=== PATIENT | female | born 1950 | race Caucasian/White ===

== ENCOUNTER 2017-02-17 13:57 | Inpatient (IN) | payer OTHER ==
[2017-02-17] MEDS ORDERED: Dexamethasone 20 MG/5 ML VIAL ONE (14:00)
[2017-02-17] MEDS ORDERED: Glycopyrrolate 0.2 MG/ML 5 ML SYRINGE ONE (14:00)
[2017-02-17] MEDS ORDERED: Propofol 200 MG/20 ML VIAL ONE (14:00)
[2017-02-17] MEDS ORDERED: Ketorolac Tromethamine 30 MG/ML VIAL ONE (14:00)
[2017-02-17] MEDS ORDERED: Ondansetron HCl/PF 4 MG/2 ML Vial ONE (14:00)
[2017-02-17] MEDS ORDERED: CEFAZOLIN/Water 2 GM/20 ML SYRINGE ONE (14:28)
[2017-02-17] MEDS ORDERED: Midazolam HCl 2 mg/2 ml Vial ONE ×2 (15:50→16:04)
[2017-02-17] MEDS ORDERED: Bupivacaine/Epinephrine 0.25% 30 ML VIAL ONE (15:57)
[2017-02-17] MEDS ORDERED: Fentanyl 100 MCG/2 ML VIAL ONE (16:04)
[2017-02-17] MEDS ORDERED: diphenhydrAMINE 25 MG CAP PO PRN (17:43)
[2017-02-17] MEDS ORDERED: Zolpidem Tartrate 5 MG TAB PO PRN (17:43)
[2017-02-17] MEDS ORDERED: Naloxone HCl 0.4 mg/ml Vial IV PRN (17:43)
[2017-02-17] MEDS ORDERED: HYDROmorphone HCl/PF 0.1 MG/ML 100 ML ONE (19:16)
[2017-02-17] MEDS ORDERED: Promethazine HCl 25 MG/ML VIAL IM PRN (19:21)
[2017-02-17] MEDS ORDERED: Ondansetron HCl/PF 4 MG/2 ML Vial IVP PRN (19:21)
[2017-02-17] MEDS ORDERED: Dextrose 5% in Water 1,000 ML IV PRN (19:21)
[2017-02-17] MEDS ORDERED: Dextrose 50% Abboject 50 ML SYRINGE SLOW IVP PRN (19:21)
[2017-02-17] MEDS ORDERED: hydrALAZINE 20 MG/ML VIAL SLOW IVP PRN (19:21)
[2017-02-17] MEDS ORDERED: Ondansetron ODT 4 MG TAB PO PRN (19:21)
[2017-02-17] MEDS: D5 1/2 NS w/20 mEq KCL 1,000 ML IV SCH (21:04)
[2017-02-17] MEDS: Promethazine HCl 25 MG/ML VIAL IM PRN (23:01)
[2017-02-17 23:05] VITALS: BMI 29.4
[2017-02-18] MEDS ORDERED: diphenhydrAMINE 50 MG/ML VIAL IVP SCH (04:15)
[2017-02-18] MEDS: HYDROmorphone 10 mg/100 ml CADD IV PRN ×2 (07:42→15:07)
[2017-02-18] MEDS: D5 1/2 NS w/20 mEq KCL 1,000 ML IV SCH (11:06)
[2017-02-18] MEDS ORDERED: diphenhydrAMINE 50 MG/ML VIAL IVP PRN (11:54)
[2017-02-18] MEDS: Promethazine HCl 25 MG/ML VIAL IM PRN (15:39)
--- NOTE | 2017-02-18 17:28 | OP ---
DATE OF PROCEDURE: 02/17/2017 PREOPERATIVE DIAGNOSIS: Chronic open wound and foreign body reaction left posterior buttock and flan k. POSTOPERATIVE DIAGNOSIS: Chronic open wound and foreign body reaction left posterior buttock and fla nk. PROCEDURE: Incision and debridement of chronic infected foreign body to back. SURGEON: Robert Alfredo M.D. ANESTHESIA: General. ESTIMATED BLOOD LOSS: Minimal. COMPLICATIONS: None. FINDINGS: There was a large calcified piece of chronic foreign body reaction similar to previous are as removed from previous surgeries. TECHNIQUE: The patient was taken to the operating room and laid supine on the operating room supine on the table. After general anesthetic was obtained, she was placed in the right lateral decubitus p osition. The chronic open wound to the left lower back and buttock was prepped and draped in a steri le fashion. There was palpable chronic calcified foreign body in the bed of the previous made wound. The tissues around this were incised using cautery. A large piece of calcified foreign body reacti on was found and dissected free from the deeper tissues and removed in its entirety. There was no ot her obvious calcified foreign body in the wound at this point, the wound was irrigated and meticulous hemostasis was obtained. Intraoperative wound VAC was placed. The patient was en route to recovery in stable condition. All instrument counts, needle counts, and lap counts were correct.
[2017-02-18] MEDS: diphenhydrAMINE 50 MG/ML VIAL IVP PRN ×2 (17:41→21:44)
[2017-02-19] MEDS: D5 1/2 NS w/20 mEq KCL 1,000 ML IV SCH ×2 (00:57→14:34)
[2017-02-19] MEDS: HYDROmorphone 10 mg/100 ml CADD IV PRN ×4 (00:58→23:29)
[2017-02-19] MEDS: Ondansetron HCl/PF 4 MG/2 ML Vial IVP PRN ×2 (01:56→14:26)
[2017-02-19] MEDS: diphenhydrAMINE 50 MG/ML VIAL IVP PRN ×6 (01:59→22:14)
[2017-02-19] MEDS ORDERED: Estradiol 0.01% Vaginal Cream 42.5 gm Tube VAG PRN (09:00)
[2017-02-19] MEDS ORDERED: Lidocaine 4% Topical Sol 50 ML BOT TOP PRN (10:16)
[2017-02-19] MEDS: Promethazine HCl 25 MG/ML VIAL IM PRN (10:22)
[2017-02-19] MEDS ORDERED: Meperidine HCl/PF 25 MG/ML VIAL SLOW IVP SCH ×2 (15:00)
[2017-02-20] MEDS: diphenhydrAMINE 50 MG/ML VIAL IVP PRN ×5 (03:46→21:08)
[2017-02-20] MEDS: D5 1/2 NS w/20 mEq KCL 1,000 ML IV SCH ×2 (03:49→18:04)
[2017-02-20] MEDS: HYDROmorphone 10 mg/100 ml CADD IV PRN ×3 (08:13→21:13)
[2017-02-20] MEDS: Ondansetron HCl/PF 4 MG/2 ML Vial IVP PRN (13:16)
--- NOTE | 2017-02-20 14:25 | PQF ---
CLINICAL DOCUMENTATION IMPROVEMENT CLARIFICATION FORM: ICD-10 Updated PLEASE DO AN ADDENDUM TO THE PROGRESS NOTE WITH ANY DOCUMENTATION UPDATES OR ADDITIONS AND CARRY THROUGH TO DC SUMMARY. THANK YOU. DATE: 02/20/17 ATTN: DR. PIERRE Please exercise your independent, professional judgment in responding to the clarification form. Clinical indicators are provided on the bottom of this form for your review Please check appropriate box(s): [ ] Excisional Debridement: [ ] Excised [ ] Cut away [ ] Other: Depth / layer: (deepest layer of debridement): [ ] Skin[ ] SubQ Tissue [ ] Fascia [ ] Muscle [ ] Tendon [ ] Bone Appearance of wound: (e.g., down to fresh bleeding tissue, etc.)___ Margins: (please specify): / x x Instruments used: [ ] Scissors [ ] Scalpel [ ] Curette [ ] Soft tissue clipper [ ] Other: [ ] Non-excisional Debridement: (Removal by ?ushing, brushing, chemical, or washing) [ ] Incision and Drainage only (No Debridement): Depth:[ ] Skin [ ] Sub Q[ ] Into soft tissue [ ] Escharectomy [ ] Other procedure diagnosis [ ] Unable to determine For continuity of documentation, please document condition throughout progress notes and discharge summary. Thank You. CLINICAL INDICATORS - SIGNS / SYMPTOMS / LABS OP NOTE 02/18: "INCISION AND DEBRIDEMENT OF CHRONIC INFECTED FOREIGN BODY TO BACK" "A LARGE PIECE OF CALCIFIED FOREIGN BODY REACTION WAS FOUND AND DISSECTED FREE FROM THE DEEPER TISSUES AND REMOVED IN ITS ENTIRETY." RISKS: ABSCESS-LEFT POSTERIOR BUTTOCK AND FLANK TREATMENT: SURGICAL INTERVENTION WOUND CARE WOUND VAC (This form is maintained as a part of the permanent medical record) 2014 [employer]. All Rights Reserved WILLIAM [email or web address] Office: [phone] [facility]ITAL[facility]
[2017-02-20] MEDS: Promethazine HCl 25 MG/ML VIAL IM PRN ×2 (17:00→21:07)
[2017-02-21] MEDS: diphenhydrAMINE 50 MG/ML VIAL IVP PRN ×5 (01:56→20:21)
[2017-02-21] MEDS: HYDROmorphone 10 mg/100 ml CADD IV PRN ×3 (03:50→18:47)
[2017-02-21] MEDS: Ondansetron HCl/PF 4 MG/2 ML Vial IVP PRN ×2 (05:49→20:20)
[2017-02-21] MEDS: D5 1/2 NS w/20 mEq KCL 1,000 ML IV SCH ×2 (07:59→20:20)
[2017-02-21] MEDS: Promethazine HCl 25 MG/ML VIAL IM PRN ×2 (10:59→15:35)
[2017-02-21] MEDS: Meperidine HCl/PF 25 MG/ML VIAL SLOW IVP PRN ×2 (11:20→11:46)
--- NOTE | 2017-02-21 15:53 | PRG ---
DATE OF SERVICE: 02/21/2017 SUBJECTIVE: Ms. Otto's pain is better controlled. She had wound VAC changed at the bedside this m pepito. OBJECTIVE: VITAL SIGNS: She is afebrile. Vital signs are stable. ABDOMEN: Soft, nontender. Wound has the VAC in place. ASSESSMENT: Status post debridement and drainage of back abscess and removal of chronic foreign body . PLAN: Continue wound VAC. She is not on antibiotics. There was no purulence in the wound and all c ultures in the past have all grown out negative for bacteria. Continue pain control, likely will nee d hospitalization over the weekend for pain control and discharge home on Friday.
[2017-02-22] MEDS: Promethazine HCl 25 MG/ML VIAL IM PRN ×2 (00:39→16:50)
[2017-02-22] MEDS: diphenhydrAMINE 50 MG/ML VIAL IVP PRN ×6 (00:40→20:47)
[2017-02-22] MEDS: HYDROmorphone 10 mg/100 ml CADD IV PRN ×3 (03:52→19:04)
--- NOTE | 2017-02-22 10:13 | PRG ---
DATE OF SERVICE: 02/22/2017 Ms. Otto is complaining of pain. Her dressing change yesterday was painful. Her pain is only slig htly improved today. She did have a bowel movement. PHYSICAL EXAMINATION: VITAL SIGNS: She is afebrile, vital signs are stable. CHEST: Clear. HEART: Regular rate and rhythm. ABDOMEN: Soft. Wound has a VAC. 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 PLAN: Dressing change on Friday, likely discharge after that.
[2017-02-22] MEDS: Ondansetron HCl/PF 4 MG/2 ML Vial IVP PRN ×2 (12:48→20:47)
[2017-02-22] MEDS: D5 1/2 NS w/20 mEq KCL 1,000 ML IV SCH (12:52)
[2017-02-23] MEDS: diphenhydrAMINE 50 MG/ML VIAL IVP PRN ×6 (00:41→20:40)
[2017-02-23] MEDS: HYDROmorphone 10 mg/100 ml CADD IV PRN ×4 (01:13→22:29)
[2017-02-23] MEDS: D5 1/2 NS w/20 mEq KCL 1,000 ML IV SCH ×2 (03:20→20:39)
[2017-02-23] MEDS: Ondansetron HCl/PF 4 MG/2 ML Vial IVP PRN ×2 (04:52→12:44)
[2017-02-23] MEDS: Promethazine HCl 25 MG/ML VIAL IM PRN ×2 (08:43→20:40)
--- NOTE | 2017-02-23 13:16 | PRG ---
DATE OF SERVICE: 02/23/2017 SUBJECTIVE: Ms. Otto's pain is controlled on TONG SETTER. She is afebrile. Vital signs are stable. Woun d is covered in the VAC. ASSESSMENT: Chronic open wound VAC with wound VAC and TONG SETTER for pain control. PLAN: Continue pain control. Discharge home next week.
[2017-02-24] MEDS: diphenhydrAMINE 50 MG/ML VIAL IVP PRN ×6 (01:31→23:10)
[2017-02-24] MEDS: Ondansetron HCl/PF 4 MG/2 ML Vial IVP PRN ×3 (01:31→23:12)
[2017-02-24] MEDS: HYDROmorphone 10 mg/100 ml CADD IV PRN ×3 (05:59→20:56)
--- NOTE | 2017-02-24 09:20 | PRG ---
DATE OF SERVICE: 02/24/2017 SUBJECTIVE: Ms. Otto is complaining of more severe pain down the back side of her leg starting at her wound extending down towards the calf. PHYSICAL EXAMINATION: She is afebrile. Her vital signs are stable. Examination of the wound reveal s wound VAC to be in place. Examination of the lower extremities reveals no obvious significant rey a, but she is point tender starting below the wound. ASSESSMENT: Likely nerve irritation from incision and drainage and chronic foreign body removal to p osterior leg. PLAN: We will check ultrasound of bilateral lower extremity to rule out DVT. I had been holding Dee enox secondary to bleeding risk from this large wound that she has, but it is probably safe to start now, probably going to be ready for discharge in the next few days.
[2017-02-24] MEDS: D5 1/2 NS w/20 mEq KCL 1,000 ML IV SCH (10:36)
[2017-02-24] MEDS: Meperidine HCl/PF 25 MG/ML VIAL SLOW IVP PRN ×2 (11:03→11:31)
--- NOTE | 2017-02-24 11:27 | ULT ---
[facility] LOWER EXTREMITY VENOUS DOPPLER ULTRASOUND: 02/24/2017 HISTORY: Pain. Swelling. Edema. Assess for DVT. COMPARISON: None. TECHNIQUE: Multiplanar garcia-scale sonographic imaging of the venous structures of the bilateral upper extremitie s obtained with color-flow and spectral analysis. FINDINGS: Bilateral common femoral veins, greater saphenous veins, profunda femoral veins, femoral veins, popli teal veins, and posterior tibial veins are patent. There is normal blood flow, augmentation, and com pression within the deep venous system bilaterally. No evidence for deep venous thrombosis noted on either side. IMPRESSION: No evidence for deep venous thrombosis of either lower extremity. POS: [facility]
[2017-02-24] MEDS: Promethazine HCl 25 MG/ML VIAL IM PRN (18:44)
[2017-02-25] MEDS: diphenhydrAMINE 50 MG/ML VIAL IVP PRN ×5 (04:17→20:39)
[2017-02-25] MEDS: Promethazine HCl 25 MG/ML VIAL IM PRN (04:18)
[2017-02-25] MEDS: HYDROmorphone 10 mg/100 ml CADD IV PRN ×3 (05:04→19:31)
[2017-02-25] MEDS: Enoxaparin Sodium 40 MG/0.4 ML SYRINGE SC SCH (09:39)
[2017-02-25] MEDS: Ondansetron HCl/PF 4 MG/2 ML Vial IVP PRN ×2 (12:32→20:39)
[2017-02-25] MEDS: D5 1/2 NS w/20 mEq KCL 1,000 ML IV SCH (16:23)
--- NOTE | 2017-02-25 17:29 | PRG ---
DATE OF SERVICE: 02/25/2017 SUBJECTIVE: Ms. Otto's pain is improved. She was more ambulatory today. OBJECTIVE: VITAL SIGNS: Afebrile, vital signs are stable. ABDOMEN: Soft, nontender. EXTREMITIES: Her duplex ultrasound of bilateral lower extremities was negative for DVT. 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 PLAN: The plan is for her to go home tomorrow after her wound VAC change.
[2017-02-26] MEDS: Promethazine HCl 25 MG/ML VIAL IM PRN ×2 (00:41→08:38)
[2017-02-26] MEDS: diphenhydrAMINE 50 MG/ML VIAL IVP PRN ×4 (00:41→13:18)
[2017-02-26] MEDS: HYDROmorphone 10 mg/100 ml CADD IV PRN (02:45)
[2017-02-26] MEDS: Ondansetron HCl/PF 4 MG/2 ML Vial IVP PRN ×2 (05:15→13:18)
[2017-02-26] MEDS: Enoxaparin Sodium 40 MG/0.4 ML SYRINGE SC SCH (08:34)
[2017-02-26] MEDS ORDERED: HYDROcodone/Acetaminophen 10/325 mg Tablet PO PRN (11:51)
[2017-02-26 11:54] VITALS: BP 93/60; TEMP 98.8
--- NOTE | 2017-02-26 11:59 | DIS ---
ADMITTING DIAGNOSES: Chronic open nonhealing wound to back with chronic foreign body reaction, chron ic pain. DISCHARGE DIAGNOSES: Chronic open nonhealing wound to back with chronic foreign body reaction, chron ic pain. PROCEDURES: On 02/17/2017, and a wide local debridement of chronic foreign body to back with general anesthetic. Postop wound VAC placement. CONDITION AT DISCHARGE: Improved. STAFF: Dr. Robert Alfredo. HOSPITAL COURSE: The patient required a [employer] for postop pain. She has significant chronic pain secon kandice to RSD and these calcified masses in her back from previous injections. Because of that pain co ntrol was an issue, dressing changes were very painful. On the day of discharge, she is doing well t rene, tolerating the wound dressing changes better. She is to be discharged to home. She will foll ow up with me in 2 weeks.
[2017-02-26] MEDS: Meperidine HCl/PF 25 MG/ML VIAL SLOW IVP PRN ×2 (14:03→14:24)
== END 2017-02-26 16:00 | disposition home or self-care (01) | DRG 571 ==
LOC: SDC 13:57 → SURG A 17:20
PROVIDERS: ADMIT Surgery; ATTEND Surgery
PROC: 0JB90ZZ Excision of Buttock Subcutaneous Tissue and Fascia, Open Approach (ICD-10-PCS; principal; 2017-02-17)
DX: L92.3 Foreign body granuloma of the skin and subcutaneous tissue (principal); L02.212 Cutaneous abscess of back [any part, except buttock and flank]; G90.50 Complex regional pain syndrome I, unspecified; Z18.9 Retained foreign body fragments, unspecified material; G89.29 Other chronic pain; Z95.828 Presence of other vascular implants and grafts; E78.5 Hyperlipidemia, unspecified; Z88.8 Allergy status to other drugs, medicaments and biological substances; Z88.1 Allergy status to other antibiotic agents; Z91.041 Radiographic dye allergy status
CPT/HCPCS: 93970; J1100; J1200; J1642; J1650; J1885; J2001; J2175; J2250; J2405; J2550; J2704; J3010

== ENCOUNTER 2017-12-11 08:30 | Inpatient (IN) | payer OTHER, MEDICARE ==
[2017-12-23] MEDS ORDERED: Promethazine HCl 25 MG/ML VIAL IM PRN ×3 (07:07→10:35)
[2017-12-23] MEDS ORDERED: Ondansetron HCl/PF 4 MG/2 ML Vial IVP PRN ×2 (07:07→10:35)
[2017-12-23] MEDS ORDERED: HYDROcodone/Acetaminophen 10/325 mg Tablet PO PRN ×2 (07:07)
[2017-12-23] MEDS ORDERED: Sodium Chloride 0.9% 10 ML ONE (07:07)
[2017-12-23] MEDS ORDERED: traMADol HCl 50 MG TAB PO PRN ×3 (07:07→09:00)
[2017-12-23] MEDS ORDERED: Fentanyl 100 MCG/2 ML VIAL SLOW IVP PRN ×2 (07:07)
[2017-12-23] MEDS ORDERED: diphenhydrAMINE 25 MG CAP PO PRN ×2 (07:07→09:00)
[2017-12-23] MEDS ORDERED: Zolpidem Tartrate 5 MG TAB PO PRN ×2 (07:07→09:00)
[2017-12-23] MEDS ORDERED: CEFAZOLIN/Water 2 GM/20 ML SYRINGE ONE (07:34)
[2017-12-23] MEDS ORDERED: Sodium Chloride 0.9% 100 ML ONE (07:34)
[2017-12-23] MEDS ORDERED: Fentanyl 100 MCG/2 ML VIAL ONE ×4 (08:10→12:01)
[2017-12-23] MEDS ORDERED: Midazolam HCl 2 mg/2 ml Vial ONE ×2 (08:10→08:28)
[2017-12-23] MEDS ORDERED: diphenhydrAMINE 50 MG/ML VIAL IM PRN (09:00)
[2017-12-23] MEDS ORDERED: fentaNYL Citrate/PF 1,250 MCG, Bupivacaine 25 ML in Sodium Chloride 0.9% 250 ML 200 ML EPIDURAL SCH (09:00)
[2017-12-23] MEDS ORDERED: HYDROcodone/Acetaminophen 5/325 mg Tablet PO PRN ×2 (09:00)
[2017-12-23] MEDS ORDERED: Naloxone HCl 0.4 mg/ml Vial IV PRN (09:00)
[2017-12-23] MEDS ORDERED: Hydrocerin (Eucerin) Cream 120 gm Jar TOP PRN (09:00)
[2017-12-23] MEDS ORDERED: Naloxone HCl 0.4 mg/ml Vial IVP PRN (09:00)
[2017-12-23] MEDS ORDERED: Ketorolac Tromethamine 30 MG/ML VIAL IVP PRN (09:00)
[2017-12-23] MEDS ORDERED: TURMERIC ROOT EXTRACT PO SCH (09:00)
[2017-12-23] MEDS ORDERED: Promethazine HCl 25 MG SUPP PR PRN (09:00)
[2017-12-23] MEDS ORDERED: Ketamine 50 MG/ML VIAL ONE (09:22)
[2017-12-23] MEDS ORDERED: Midazolam HCl 5 mg/5 ml Vial ONE (09:23)
[2017-12-23] MEDS ORDERED: HYDROmorphone 2 MG/ML VIAL ONE ×2 (09:39→11:09)
[2017-12-23] MEDS ORDERED: Bupivacaine HCl 0.5%/Epinephrine 1:200,000/PF 30 ml Vial ONE (10:02)
[2017-12-23] MEDS ORDERED: HYDROmorphone 2 MG/ML VIAL SLOW IVP PRN (10:35)
[2017-12-23] MEDS ORDERED: Promethazine HCl 25 MG/ML VIAL SLOW IVP PRN (10:35)
--- NOTE | 2017-12-23 11:17 | OP ---
PREOPERATIVE DIAGNOSIS: Degenerative joint disease, left hip. POSTOPERATIVE DIAGNOSIS: Degenerative joint disease, left hip. SURGEON: Desean Dave M.D. TALENT ACQUISITION CONSULTANT: Gaurav Wolfe PA-C. BLOOD LOSS: 200 mL SPECIMEN: None. DRAINS: None. COMPLICATIONS: None. IMPLANTS USED: Campos Accolade #1 stem with a standard 36 mm head, a 48 mm PSL cup with X3 liner. PROCEDURE IN DETAIL: After informed consent was obtained, in the preoperative holding area, the monika ent was taken to the operative suite where general anesthesia was induced. The patient was then posi tioned in the lateral decubitus position. The hip was then prepped and draped in usual sterile fashi on. The patient received preoperative antibiotics. Prior to incision, time-out was called and all m embers of the surgical team agreed upon site, surgeon, and patient. After this, a longitudinal incis ion was made directly over the trochanter, noted by palpation extending 2 fingerbreadths above and be low the trochanter. The deeper subcutaneous layer was undermined with Bovie electrocautery. The roxana otibial band was encountered and incised sharply and the plane below this was developed bluntly. A C harnley retractor was placed to hold this opened. The lateral aspect of the trochanter and the abduc tor muscles were encountered and then reflected anteriorly off the trochanter using Bovie electrocaut aleksey. Once this was completed, the anterior capsule was then encountered and identified and copious c apsulotomy was carried out, exposing the femoral neck and head. Dislocation maneuver was then perform ed and an in situ provisional neck cut was then made using the oscillating saw. Attention was then t urned to acetabular preparation and sequential reaming was carried out up to the appropriate diameter and a trial was then malleted into place with good firm resistance and no pullout. The permanent ac etabular shell was then malleted squarely into place, as was the appropriate liner. Once completed, the wound was copiously irrigated and attention was then turned to femoral preparation. Flexion and e xternal rotation was performed of the exposed thigh and femoral elevators were then placed at the pro ximal aspect of the wound. Canal finder was used to establish the length of the canal and sequential reaming was carried out, followed by broaching. Once the appropriate stability was established with the trial broaches with both flexion, extension and rotational stability, we did trial with neutral and 2 mm offset incremental necks. Once the appropriate size was decided upon, with good stability n oted with flexion, extension, internal and external rotation and shuck being negative, we removed the femoral trial broach and malletted into place the permanent prosthesis with good firm fit, which was also stable to rotation. Again, the hip felt very stable to flexion, extension, internal and ui developer al rotation. Leg lengths appeared near anatomic clinically and we were quite happy with prosthesis p lacement. Copious irrigation was then carried out through the entirety of the wound. Primary closur e of the abductors was accomplished with interrupted #2 Vicryl [id number] stitches and the IT ba nd was then closed with interrupted #2 Vicryl, oversewn with a #2 running barbed Quill stitch. Subcu taneous fascia was closed with running barbed Quill stitch and a subcuticular Monocryl barbed Quill s titch was used for skin closure and augmented with skin cement. A sterile dressing was applied. The procedure was terminated without any complication. All counts were correct. The patient was awakene d in the operative suite and taken to the recovery room in stable condition.
[2017-12-23] MEDS ORDERED: Morphine ER 30 MG TAB PO PRN (12:34)
--- NOTE | 2017-12-23 13:19 | RAD ---
RIGHT HIP TWO VIEWS: History: Right hip pain. FINDINGS: Right hip prosthesis is in place without perihardware lucency. Extensive heterotopic ossification abo ut the soft tissues is unchanged from the 01-23-17 exam. IMPRESSION: Right hip prosthesis is in good radiographic position. POS: [facility]
[2017-12-23] MEDS ORDERED: Glycopyrrolate 0.2 MG/ML 5 ML SYRINGE ONE (13:24)
[2017-12-23] MEDS ORDERED: PHENYLEPHRINE-NS 100 MCG/ML 10 ML SYRINGE ONE (13:24)
[2017-12-23] MEDS ORDERED: Ondansetron HCl/PF 4 MG/2 ML Vial ONE (13:24)
[2017-12-23 14:41] VITALS: BMI 26.9
[2017-12-23] MEDS: Multivitamin W/ Minerals 1 TAB PO SCH (15:32)
[2017-12-23] MEDS: Senokot S 8.6-50 MG TAB PO SCH ×2 (15:32→20:08)
[2017-12-23] MEDS: Aspirin 81 mg Enteric Coated Tablet PO SCH ×2 (15:33→20:09)
[2017-12-23] MEDS: Sodium Chloride 0.9% 1,000 ML IV SCH ×2 (15:33→17:34)
[2017-12-23] MEDS: Ferrous Gluconate 324 MG TAB PO SCH ×2 (15:33→20:09)
--- NOTE | 2017-12-23 15:53 | PDOC.PN ---
- Subjective Encounter Start Date: 12/23/17 Encounter Start Time: 15:50 Pt seen for management of medical comorbidities including reflex sympathetic dystrophy. Denies chest pain, shortness of breath, fevers or chills. - Objective MAR Reviewed: Yes Vital Signs & Weight: Vital Signs (12 hours) Temp Pulse Resp BP Pulse Ox 12/23/17 14:15 98.5 F 93 16 153/81 H 94 L Weight Weight 147 lb Additional Labs: Labs reviewed by me Phys Exam - Physical Examination Constitutional: NAD HEENT: moist MMs Neck: supple Respiratory: clear to auscultation bilateral Cardiovascular: RRR s/p left hip surgery Neurological: moves all 4 limbs Psychiatric: normal affect Dx/Plan (1) RSD (reflex sympathetic dystrophy) Code(s): G90.50 - COMPLEX REGIONAL PAIN SYNDROME I, UNSPECIFIED Status: Chronic Comment: stable, continue home medications (2) Chronic pain Code(s): G89.29 - OTHER CHRONIC PAIN Status: Chronic Comment: stable - Plan * . Review of Systems - Review of Systems Respiratory: negative: Cough, Shortness of Breath, SOB with Excertion, Pleuritic Pain, Wheezing Cardiovascular: negative: chest pain, palpitations, orthopnea, paroxysmal nocturnal dyspnea, edema, light headedness - Medications/Allergies Allergies/Adverse Reactions: Allergies Allergy/AdvReac Type Severity Reaction Status Date / Time Iodinated Contrast- Oral and Allergy Hives - IV Verified 12/11/17 09:12 IV Dye Contrast [Iodinated Contrast Media - IV Dye] pentazocine lactate Allergy Verified 12/11/17 09:12 [From Talwin] soap [From Betadine] Allergy Verified 12/11/17 09:12 sulfamethoxazole Allergy Hives Verified 12/11/17 09:12 [From Bactrim] tizanidine Allergy Verified 12/11/17 09:12 trimethoprim [From Bactrim] Allergy Hives Verified 12/11/17 09:12 vancomycin Allergy Hives Verified 12/11/17 09:12 standard wound vac drape Allergy severe Uncoded 01/04/16 08:39 itching Medications: Current Medications Acetaminophen (Tylenol) 650 mg PO Q4H PRN PRN Reason: HOROWITZ/ T > 101F; Mild Pain (1-3) Hydrocodone Bitart/Acetaminophen (Camuy 5/325) 1 tab PO Q4H PRN PRN Reason: Mild Pain 0-3 Hydrocodone Bitart/Acetaminophen (Camuy 5/325) 2 tab PO Q4H PRN PRN Reason: For Moderate Pain 4-6 Last Admin: 12/23/17 15:30 Dose: 2 tab Aspirin (Ecotrin) 81 mg PO BID [facility] Last Admin: 12/23/17 15:33 Dose: Not Given Carisoprodol (Soma) 350 mg PO [facility] Cefazolin Sodium (Ancef) 2 gm SLOW IVP Q8H [facility] Stop: 12/23/17 23:01 Cyclobenzaprine HCl (Flexeril) 10 mg PO TID PRN PRN Reason: Pain Diphenhydramine HCl (Benadryl) 25 mg PO Q3H PRN PRN Reason: Itching Diphenhydramine HCl (Benadryl) 25 mg IM Q3H PRN PRN Reason: Itching Diphenhydramine HCl (Benadryl) 25 mg IVP Q3H PRN PRN Reason: Itching Emollient Cream (Hydrocerin Cream) 0 gm TOP PRN PRN PRN Reason: Itching Estradiol (Estrace 0.01% Vaginal Cream) 0 gm VAG Q7DAYS PRN PRN Reason: menopause Ferrous Gluconate (Fergon) 324 mg PO BID [facility] Last Admin: 12/23/17 15:33 Dose: Not Given Sodium Chloride (Normal Saline 0.9%) 1,000 mls @ 100 mls/hr IV .Q10H [facility] Last Admin: 12/23/17 15:33 Dose: Not Given Fentanyl Citrate 1,250 mcg/Bupivacaine HCl 25 ml/ Sodium Chloride 250 mls @ 0 mls/hr EPIDURAL INF [facility] Iron/Minerals/Multivitamins (Theragran M) 1 tab PO DAILY [facility] Last Admin: 12/23/17 15:32 Dose: Not Given Ketorolac Tromethamine (Toradol) 15 mg IVP Q6H PRN PRN Reason: Moderate Pain (4-6) Stop: 12/26/17 09:01 Miscellaneous Information (Communication Order-Pharmacy) 1 each FS ASDIR [facility] Morphine Sulfate (Ms Contin) 60 mg PO TIDPRN PRN PRN Reason: Pain Naloxone HCl (Narcan) 0.2 mg IV Q5MIN PRN PRN Reason: RR <=8 OR OBTUNDED/UNAROUSABLE Naloxone HCl (Narcan) 0.1 mg IVP Q15MIN PRN PRN Reason: URINARY RETENTION Ondansetron HCl (Zofran) 4 mg IVP Q6H PRN PRN Reason: Nausea/Vomiting (Turmeric Root Extract [Turmeric] 285 Mg) Hm Med 0 each PO DAILY [facility] Promethazine HCl (Phenergan) 12.5 mg IM Q4H PRN PRN Reason: Nausea Promethazine HCl (Phenergan Suppository) 25 mg AR Q4H PRN PRN Reason: Nausea/Vomiting Senna/Docusate Sodium (Senokot S) 2 tab PO BID [facility] Last Admin: 12/23/17 15:32 Dose: Not Given Sodium Chloride (Flush - Normal Saline) 10 ml IVF PRN PRN PRN Reason: Saline Flush Tramadol HCl (Ultram) 50 mg PO Q6H PRN PRN Reason: Mild Pain 1-3 Tramadol HCl (Ultram) 100 mg PO Q6H PRN PRN Reason: Moderate Pain 4-6 Zolpidem Tartrate (Ambien) 5 mg PO HSPRN PRN PRN Reason: Insomnia
[2017-12-23] MEDS: CEFAZOLIN/Water 2 GM/20 ML SYRINGE SLOW IVP SCH ×2 (16:57→23:16)
[2017-12-23] MEDS: Cyclobenzaprine 10 MG TAB PO PRN (17:04)
[2017-12-23] MEDS: HYDROmorphone 10 mg/100 ml CADD IV PRN (18:55)
[2017-12-23] MEDS: diphenhydrAMINE 50 MG/ML VIAL IVP PRN (20:48)
[2017-12-23] MEDS ORDERED: Estradiol 0.01% Vaginal Cream 42.5 gm Tube VAG PRN (21:00)
[2017-12-24] MEDS: Sodium Chloride 0.9% 1,000 ML IV SCH ×3 (01:50→23:58)
[2017-12-24] MEDS: diphenhydrAMINE 50 MG/ML VIAL IVP PRN ×4 (03:51→20:35)
[2017-12-24 04:37] LABS: Hemoglobin 9.7 g/dL (12.0-16.0); Mean Corpuscular HGB CONC 33.1 g/dL (32.0-36.0); Mean Corpuscular Volume 96.9 fL (78.0-98.0); Mean Platelet Volume 7.4 fL (7.4-10.4); Platelet Count 211 thou/uL (130-400); RBC Distribution Width 11.3 % (11.5-14.5); Red Blood Cell (RBC) Count 3.02 mill/uL (4.20-5.40); White Blood Cell (WBC) Count 6.3 thou/uL (4.8-10.8)
[2017-12-24] MEDS ORDERED: Bupivacaine 0.25% HCL 30 ML VIAL ONE (08:41)
[2017-12-24] MEDS: Ferrous Gluconate 324 MG TAB PO SCH ×2 (09:23→20:35)
[2017-12-24] MEDS: Multivitamin W/ Minerals 1 TAB PO SCH (09:23)
[2017-12-24] MEDS: Senokot S 8.6-50 MG TAB PO SCH ×2 (09:23→20:35)
[2017-12-24] MEDS: Aspirin 81 mg Enteric Coated Tablet PO SCH ×2 (09:24→20:35)
[2017-12-24] MEDS: Acetaminophen 325 MG TAB PO PRN ×2 (10:06→17:39)
[2017-12-24] MEDS: Bupivacaine 10 ML in Sodium Chloride 0.9% 90 ML EPIDURAL SCH ×2 (10:31→21:08)
[2017-12-24] MEDS: HYDROmorphone 10 mg/100 ml CADD IV PRN ×2 (14:18→21:10)
[2017-12-24] MEDS: Ondansetron HCl/PF 4 MG/2 ML Vial IVP PRN (16:10)
--- NOTE | 2017-12-24 18:46 | PDOC.PN ---
- Subjective Encounter Start Date: 12/24/17 Encounter Start Time: 16:00 Pt seen for management of medical comorbidities including reflex sympathetic dystrophy. Reports pain all over her body from RSD. No shortness of breath, fevers or chills. - Objective MAR Reviewed: Yes Vital Signs & Weight: Vital Signs (12 hours) Temp Pulse Resp BP BP Pulse Ox 12/24/17 15:18 99.6 F 95 18 157/81 H 91 L 12/24/17 11:25 99.5 F 95 18 154/80 H 91 L 12/24/17 10:56 128/77 Weight Admit Weight 147 lb Weight 147 lb I&O: 12/23/17 12/24/17 12/25/17 06:59 06:59 06:59 Intake Total 1570 1200 Output Total 1000 450 Balance 570 750 Result Diagrams: 12/24/17 03:33 Additional Labs: Labs reviewed by me Phys Exam - Physical Examination Constitutional: NAD HEENT: moist MMs Neck: supple Respiratory: clear to auscultation bilateral Cardiovascular: RRR Gastrointestinal: soft Neurological: moves all 4 limbs L hip s/p surgery Psychiatric: normal affect Dx/Plan (1) RSD (reflex sympathetic dystrophy) Code(s): G90.50 - COMPLEX REGIONAL PAIN SYNDROME I, UNSPECIFIED Status: Chronic Comment: pt is on analgesics (2) Chronic pain Code(s): G89.29 - OTHER CHRONIC PAIN Status: Chronic Comment: stable - Plan PT/OT, out of bed/ambulate * . pain management and DVT prophylaxis per primary team Occasional blood pressure elevations, pt has PRN IV hydralazine ordered. Review of Systems - Review of Systems Respiratory: negative: Cough, Shortness of Breath, SOB with Excertion, Pleuritic Pain, Wheezing Gastrointestinal: negative: Nausea, Vomiting, Abdominal Pain, Diarrhea, Constipation, Melena, Hematochezia - Medications/Allergies Allergies/Adverse Reactions: Allergies Allergy/AdvReac Type Severity Reaction Status Date / Time Iodinated Contrast- Oral and Allergy Hives - IV Verified 12/11/17 09:12 IV Dye Contrast [Iodinated Contrast Media - IV Dye] pentazocine lactate Allergy Verified 12/11/17 09:12 [From Talwin] soap [From Betadine] Allergy Verified 12/11/17 09:12 sulfamethoxazole Allergy Hives Verified 12/11/17 09:12 [From Bactrim] tizanidine Allergy Verified 12/11/17 09:12 trimethoprim [From Bactrim] Allergy Hives Verified 12/11/17 09:12 vancomycin Allergy Hives Verified 12/11/17 09:12 standard wound vac drape Allergy severe Uncoded 01/04/16 08:39 itching Medications: Current Medications Acetaminophen (Tylenol) 650 mg PO Q4H PRN PRN Reason: HOROWITZ/ T > 101F; Mild Pain (1-3) Last Admin: 12/24/17 17:39 Dose: 650 mg Aspirin (Ecotrin) 81 mg PO BID [facility] Last Admin: 12/24/17 09:24 Dose: 81 mg Cyclobenzaprine HCl (Flexeril) 10 mg PO TID PRN PRN Reason: Pain Last Admin: 12/23/17 17:04 Dose: 10 mg Diphenhydramine HCl (Benadryl) 25 mg PO Q3H PRN PRN Reason: Itching Diphenhydramine HCl (Benadryl) 25 mg IM Q3H PRN PRN Reason: Itching Diphenhydramine HCl (Benadryl) 25 mg IVP Q3H PRN PRN Reason: Itching Last Admin: 12/24/17 16:05 Dose: 25 mg Emollient Cream (Hydrocerin Cream) 0 gm TOP PRN PRN PRN Reason: Itching Estradiol (Estrace 0.01% Vaginal Cream) 0 gm VAG Q7DAYS PRN PRN Reason: menopause Ferrous Gluconate (Fergon) 324 mg PO BID [facility] Last Admin: 12/24/17 09:23 Dose: 324 mg Hydromorphone HCl (Dilaudid Cadd) 0 mg IV INF PRN PRN Reason: Pain Last Admin: 12/24/17 14:18 Dose: 10 mg Sodium Chloride (Normal Saline 0.9%) 1,000 mls @ 100 mls/hr IV .Q10H [facility] Last Admin: 12/24/17 11:54 Dose: Not Given Bupivacaine HCl 10 ml/ Sodium (Chloride) 100 mls @ 0 mls/hr EPIDURAL INF [facility]; Protocol Last Admin: 12/24/17 10:31 Dose: 100 mls Iron/Minerals/Multivitamins (Theragran M) 1 tab PO DAILY [facility] Last Admin: 12/24/17 09:23 Dose: 1 tab Ketorolac Tromethamine (Toradol) 15 mg IVP Q6H PRN PRN Reason: Moderate Pain (4-6) Stop: 12/26/17 09:01 Miscellaneous Information (Communication Order-Pharmacy) 1 each FS ASDIR [facility] Naloxone HCl (Narcan) 0.2 mg IV Q5MIN PRN PRN Reason: RR <=8 OR OBTUNDED/UNAROUSABLE Naloxone HCl (Narcan) 0.1 mg IVP Q15MIN PRN PRN Reason: URINARY RETENTION Ondansetron HCl (Zofran) 4 mg IVP Q6H PRN PRN Reason: Nausea/Vomiting Last Admin: 12/24/17 16:10 Dose: 4 mg Promethazine HCl (Phenergan) 12.5 mg IM Q4H PRN PRN Reason: Nausea Promethazine HCl (Phenergan Suppository) 25 mg AK Q4H PRN PRN Reason: Nausea/Vomiting Senna/Docusate Sodium (Senokot S) 2 tab PO BID [facility] Last Admin: 12/24/17 09:23 Dose: 2 tab Sodium Chloride (Flush - Normal Saline) 10 ml IVF PRN PRN PRN Reason: Saline Flush Zolpidem Tartrate (Ambien) 5 mg PO HSPRN PRN PRN Reason: Insomnia
[2017-12-25] MEDS: Acetaminophen 325 MG TAB PO PRN ×2 (00:20→16:38)
[2017-12-25] MEDS: diphenhydrAMINE 50 MG/ML VIAL IVP PRN ×4 (00:20→20:33)
[2017-12-25] MEDS: Ondansetron HCl/PF 4 MG/2 ML Vial IVP PRN ×2 (03:54→18:24)
[2017-12-25] MEDS ORDERED: Fioricet 325/50/40 mg Tablet PO SCH ×2 (05:30→09:30)
[2017-12-25 05:37] LABS: Hemoglobin 10.8 g/dL (12.0-16.0); Mean Corpuscular HGB CONC 34.2 g/dL (32.0-36.0); Mean Corpuscular Hemoglobin 32.7 pg (27.0-31.0); Mean Corpuscular Volume 95.5 fL (78.0-98.0); Mean Platelet Volume 6.9 fL (7.4-10.4); Platelet Count 226 thou/uL (130-400); RBC Distribution Width 11.1 % (11.5-14.5); Red Blood Cell (RBC) Count 3.31 mill/uL (4.20-5.40); White Blood Cell (WBC) Count 8.8 thou/uL (4.8-10.8)
[2017-12-25] MEDS: HYDROmorphone 10 mg/100 ml CADD IV PRN ×3 (05:49→20:34)
[2017-12-25] MEDS: Bupivacaine 10 ML in Sodium Chloride 0.9% 90 ML EPIDURAL SCH ×2 (05:50→15:44)
[2017-12-25] MEDS: Ferrous Gluconate 324 MG TAB PO SCH ×2 (08:33→20:32)
[2017-12-25] MEDS: Senokot S 8.6-50 MG TAB PO SCH ×2 (08:34→20:32)
[2017-12-25] MEDS: Aspirin 81 mg Enteric Coated Tablet PO SCH ×2 (08:34→20:32)
[2017-12-25] MEDS: Multivitamin W/ Minerals 1 TAB PO SCH (08:34)
[2017-12-25] MEDS: Sodium Chloride 0.9% 1,000 ML IV SCH ×2 (10:10→18:48)
[2017-12-25] MEDS: Fioricet 325/50/40 mg Tablet PO PRN ×2 (16:38→23:30)
--- NOTE | 2017-12-25 18:18 | PDOC.PN ---
- Subjective Encounter Start Date: 12/25/17 Encounter Start Time: 08:00 Pt seen for followup re: migraine headaches. Reports headache earlier, improved with Fioricet. No other complaints. - Objective MAR Reviewed: Yes Vital Signs & Weight: Vital Signs (12 hours) Temp Pulse Resp BP Pulse Ox 12/25/17 18:11 99.4 F 90 18 96 12/25/17 16:15 100.2 F H 106 H 16 161/82 H 95 12/25/17 12:07 97 12/25/17 11:30 99.8 F H 88 20 163/80 H 89 L 12/25/17 08:10 98.6 F 85 20 148/76 H 94 L 12/25/17 07:44 93 L Weight Admit Weight 147 lb Weight 147 lb I&O: 12/24/17 12/25/17 12/26/17 06:59 06:59 06:59 Intake Total 1570 1560 1800 Output Total 1000 1200 1050 Balance 570 360 750 Result Diagrams: 12/25/17 05:09 Additional Labs: Labs reviewed by me Phys Exam - Physical Examination Constitutional: NAD HEENT: moist MMs Neck: supple Respiratory: clear to auscultation bilateral Cardiovascular: RRR Gastrointestinal: soft s/p L hip surgery Neurological: non-focal Psychiatric: normal affect Dx/Plan (1) Migraine Code(s): G43.909 - MIGRAINE, UNSP, NOT INTRACTABLE, WITHOUT STATUS MIGRAINOSUS Status: Acute Comment: Improved with Fioricet, continue Fioricet PRN (2) RSD (reflex sympathetic dystrophy) Code(s): G90.50 - COMPLEX REGIONAL PAIN SYNDROME I, UNSPECIFIED Status: Chronic Comment: continue analgesics (3) Chronic pain Code(s): G89.29 - OTHER CHRONIC PAIN Status: Chronic Comment: stable - Plan * . Review of Systems - Review of Systems Respiratory: negative: Cough, Shortness of Breath, SOB with Excertion, Pleuritic Pain, Wheezing Cardiovascular: negative: chest pain, palpitations, orthopnea, paroxysmal nocturnal dyspnea, edema, light headedness - Medications/Allergies Allergies/Adverse Reactions: Allergies Allergy/AdvReac Type Severity Reaction Status Date / Time Iodinated Contrast- Oral and Allergy Hives - IV Verified 12/11/17 09:12 IV Dye Contrast [Iodinated Contrast Media - IV Dye] pentazocine lactate Allergy Verified 12/11/17 09:12 [From Talwin] soap [From Betadine] Allergy Verified 12/11/17 09:12 sulfamethoxazole Allergy Hives Verified 12/11/17 09:12 [From Bactrim] tizanidine Allergy Verified 12/11/17 09:12 trimethoprim [From Bactrim] Allergy Hives Verified 12/11/17 09:12 vancomycin Allergy Hives Verified 12/11/17 09:12 standard wound vac drape Allergy severe Uncoded 01/04/16 08:39 itching Medications: Current Medications Acetaminophen (Tylenol) 650 mg PO Q4H PRN PRN Reason: HOROWITZ/ T > 101F; Mild Pain (1-3) Last Admin: 12/25/17 16:38 Dose: 650 mg Acetaminophen/Butalbital/Caffeine (Fioricet) 1 tab PO Q6H PRN PRN Reason: Headache Stop: 12/30/17 12:32 Last Admin: 12/25/17 16:38 Dose: 1 tab Aspirin (Ecotrin) 81 mg PO BID [facility] Last Admin: 12/25/17 08:34 Dose: 81 mg Cyclobenzaprine HCl (Flexeril) 10 mg PO TID PRN PRN Reason: Pain Last Admin: 12/23/17 17:04 Dose: 10 mg Diphenhydramine HCl (Benadryl) 25 mg PO Q3H PRN PRN Reason: Itching Diphenhydramine HCl (Benadryl) 25 mg IM Q3H PRN PRN Reason: Itching Diphenhydramine HCl (Benadryl) 25 mg IVP Q3H PRN PRN Reason: Itching Last Admin: 12/25/17 10:40 Dose: 25 mg Emollient Cream (Hydrocerin Cream) 0 gm TOP PRN PRN PRN Reason: Itching Estradiol (Estrace 0.01% Vaginal Cream) 0 gm VAG Q7DAYS PRN PRN Reason: menopause Ferrous Gluconate (Fergon) 324 mg PO BID [facility] Last Admin: 12/25/17 08:33 Dose: 324 mg Hydromorphone HCl (Dilaudid Cadd) 0 mg IV INF PRN PRN Reason: Pain Last Admin: 12/25/17 13:38 Dose: 10 mg Sodium Chloride (Normal Saline 0.9%) 1,000 mls @ 100 mls/hr IV .Q10H [facility] Last Admin: 12/25/17 10:10 Dose: Not Given Bupivacaine HCl 10 ml/ Sodium (Chloride) 100 mls @ 0 mls/hr EPIDURAL INF [facility]; Protocol Last Admin: 12/25/17 15:44 Dose: 100 mls Iron/Minerals/Multivitamins (Theragran M) 1 tab PO DAILY [facility] Last Admin: 12/25/17 08:34 Dose: 1 tab Ketorolac Tromethamine (Toradol) 15 mg IVP Q6H PRN PRN Reason: Moderate Pain (4-6) Stop: 12/26/17 09:01 Miscellaneous Information (Communication Order-Pharmacy) 1 each FS ASDIR [facility] Naloxone HCl (Narcan) 0.2 mg IV Q5MIN PRN PRN Reason: RR <=8 OR OBTUNDED/UNAROUSABLE Naloxone HCl (Narcan) 0.1 mg IVP Q15MIN PRN PRN Reason: URINARY RETENTION Ondansetron HCl (Zofran) 4 mg IVP Q6H PRN PRN Reason: Nausea/Vomiting Last Admin: 12/25/17 03:54 Dose: 4 mg Promethazine HCl (Phenergan) 12.5 mg IM Q4H PRN PRN Reason: Nausea Promethazine HCl (Phenergan Suppository) 25 mg [place] Q4H PRN PRN Reason: Nausea/Vomiting Senna/Docusate Sodium (Senokot S) 2 tab PO BID [facility] Last Admin: 12/25/17 08:34 Dose: 2 tab Sodium Chloride (Flush - Normal Saline) 10 ml IVF PRN PRN PRN Reason: Saline Flush Zolpidem Tartrate (Ambien) 5 mg PO HSPRN PRN PRN Reason: Insomnia
[2017-12-26] MEDS: diphenhydrAMINE 50 MG/ML VIAL IVP PRN ×4 (01:34→12:22)
[2017-12-26] MEDS: Bupivacaine 10 ML in Sodium Chloride 0.9% 90 ML EPIDURAL SCH (01:36)
[2017-12-26] MEDS: HYDROmorphone 10 mg/100 ml CADD IV PRN (05:12)
[2017-12-26] MEDS: Fioricet 325/50/40 mg Tablet PO PRN (05:21)
[2017-12-26] MEDS: Sodium Chloride 0.9% 1,000 ML IV SCH ×3 (05:30→21:59)
[2017-12-26 05:33] LABS: Hemoglobin 10.8 g/dL (12.0-16.0); Mean Corpuscular Hemoglobin 31.7 pg (27.0-31.0); Mean Platelet Volume 6.9 fL (7.4-10.4); Platelet Count 243 thou/uL (130-400); RBC Distribution Width 11.2 % (11.5-14.5); Red Blood Cell (RBC) Count 3.41 mill/uL (4.20-5.40); White Blood Cell (WBC) Count 7.7 thou/uL (4.8-10.8)
[2017-12-26] MEDS: Multivitamin W/ Minerals 1 TAB PO SCH (08:30)
[2017-12-26] MEDS: Senokot S 8.6-50 MG TAB PO SCH ×2 (08:30→21:04)
[2017-12-26] MEDS: Aspirin 81 mg Enteric Coated Tablet PO SCH ×2 (08:30→21:04)
[2017-12-26] MEDS: Ferrous Gluconate 324 MG TAB PO SCH ×2 (08:30→21:04)
[2017-12-26] MEDS: Cyclobenzaprine 10 MG TAB PO PRN (09:41)
[2017-12-26] MEDS ORDERED: oxyCODONE/Acetaminophen 5 mg/325 mg Tablet PO PRN (10:18)
[2017-12-26] MEDS: oxyCODONE/Acetaminophen 5 mg/325 mg Tablet PO PRN ×3 (12:26→21:03)
[2017-12-26] MEDS: Morphine ER 30 MG TAB PO SCH ×2 (14:28→21:03)
--- NOTE | 2017-12-26 18:44 | PDOC.PN ---
- Subjective Encounter Start Date: 12/26/17 Encounter Start Time: 09:00 Pt seen for followup re: migraine headache. No headache today. - Objective Vital Signs & Weight: Vital Signs (12 hours) Temp Pulse Resp BP Pulse Ox 12/26/17 15:49 98.9 F 94 16 129/73 94 L 12/26/17 11:45 99.4 F 95 12 149/77 H 95 12/26/17 08:27 95 12/26/17 07:15 99.6 F 80 17 147/77 H 95 Weight Admit Weight 147 lb Weight 147 lb I&O: 12/25/17 12/26/17 12/27/17 06:59 06:59 06:59 Intake Total 1560 2160 Output Total 1200 2000 800 Balance 360 160 -800 Result Diagrams: 12/26/17 05:03 Phys Exam - Physical Examination Constitutional: NAD HEENT: moist MMs Neck: supple Respiratory: clear to auscultation bilateral Cardiovascular: RRR Neurological: moves all 4 limbs Psychiatric: normal affect Dx/Plan (1) Migraine Code(s): G43.909 - MIGRAINE, UNSP, NOT INTRACTABLE, WITHOUT STATUS MIGRAINOSUS Status: Chronic Comment: continue Fioricet PRN (2) RSD (reflex sympathetic dystrophy) Code(s): G90.50 - COMPLEX REGIONAL PAIN SYNDROME I, UNSPECIFIED Status: Chronic Comment: continue pain medications (3) Chronic pain Code(s): G89.29 - OTHER CHRONIC PAIN Status: Chronic Comment: stable - Plan * . Review of Systems - Review of Systems Cardiovascular: negative: chest pain, palpitations, orthopnea, paroxysmal nocturnal dyspnea, edema, light headedness Neurological: negative: Weakness, Numbness, Incoordination, Change in Speech, Confusion, Seizures - Medications/Allergies Allergies/Adverse Reactions: Allergies Allergy/AdvReac Type Severity Reaction Status Date / Time Iodinated Contrast- Oral and Allergy Hives - IV Verified 12/11/17 09:12 IV Dye Contrast [Iodinated Contrast Media - IV Dye] pentazocine lactate Allergy Verified 12/11/17 09:12 [From Talwin] soap [From Betadine] Allergy Verified 12/11/17 09:12 sulfamethoxazole Allergy Hives Verified 12/11/17 09:12 [From Bactrim] tizanidine Allergy Verified 12/11/17 09:12 trimethoprim [From Bactrim] Allergy Hives Verified 12/11/17 09:12 vancomycin Allergy Hives Verified 12/11/17 09:12 standard wound vac drape Allergy severe Uncoded 01/04/16 08:39 itching Medications: Current Medications Acetaminophen (Tylenol) 650 mg PO Q4H PRN PRN Reason: H[place]ITZ/ T > 101F; Mild Pain (1-3) Last Admin: 12/25/17 16:38 Dose: 650 mg Acetaminophen/Butalbital/Caffeine (Fioricet) 1 tab PO Q6H PRN PRN Reason: Headache Stop: 12/30/17 12:32 Last Admin: 12/26/17 05:21 Dose: 1 tab Aspirin (Ecotrin) 81 mg PO BID COUNTS INCLUDE 234 BEDS AT THE [facility] Last Admin: 12/26/17 08:30 Dose: 81 mg Cyclobenzaprine HCl (Flexeril) 10 mg PO TID PRN PRN Reason: Pain Last Admin: 12/26/17 09:41 Dose: 10 mg Diphenhydramine HCl (Benadryl) 25 mg PO Q3H PRN PRN Reason: Itching Diphenhydramine HCl (Benadryl) 25 mg IM Q3H PRN PRN Reason: Itching Diphenhydramine HCl (Benadryl) 25 mg IVP Q3H PRN PRN Reason: Itching Last Admin: 12/26/17 12:22 Dose: 25 mg Emollient Cream (Hydrocerin Cream) 0 gm TOP PRN PRN PRN Reason: Itching Estradiol (Estrace 0.01% Vaginal Cream) 0 gm VAG Q7DAYS PRN PRN Reason: menopause Ferrous Gluconate (Fergon) 324 mg PO BID COUNTS INCLUDE 234 BEDS AT THE [facility] Last Admin: 12/26/17 08:30 Dose: 324 mg Sodium Chloride (Normal Saline 0.9%) 1,000 mls @ 100 mls/hr IV .Q10H COUNTS INCLUDE 234 BEDS AT THE [facility] Last Admin: 12/26/17 14:37 Dose: Not Given Iron/Minerals/Multivitamins (Theragran M) 1 tab PO DAILY COUNTS INCLUDE 234 BEDS AT THE [facility] Last Admin: 12/26/17 08:30 Dose: 1 tab Miscellaneous Information (Communication Order-Pharmacy) 1 each FS ASDIR COUNTS INCLUDE 234 BEDS AT THE [facility] Morphine Sulfate (Ms Contin) 60 mg PO TID COUNTS INCLUDE 234 BEDS AT THE [facility] Last Admin: 12/26/17 14:28 Dose: 60 mg Naloxone HCl (Narcan) 0.2 mg IV Q5MIN PRN PRN Reason: RR <=8 OR OBTUNDED/UNAROUSABLE Naloxone HCl (Narcan) 0.1 mg IVP Q15MIN PRN PRN Reason: URINARY RETENTION Ondansetron HCl (Zofran) 4 mg IVP Q6H PRN PRN Reason: Nausea/Vomiting Last Admin: 12/25/17 18:24 Dose: 4 mg Oxycodone/Acetaminophen (Percocet 5/325) 1 tab PO Q4H PRN PRN Reason: Moderate Pain (4-6) Oxycodone/Acetaminophen (Percocet 5/325) 2 tab PO Q4H PRN PRN Reason: Severe Pain (7-10) Last Admin: 12/26/17 16:47 Dose: 2 tab Promethazine HCl (Phenergan) 12.5 mg IM Q4H PRN PRN Reason: Nausea Promethazine HCl (Phenergan Suppository) 25 mg [place] Q4H PRN PRN Reason: Nausea/Vomiting Senna/Docusate Sodium (Senokot S) 2 tab PO BID [facility] Last Admin: 12/26/17 08:30 Dose: 2 tab Sodium Chloride (Flush - Normal Saline) 10 ml IVF PRN PRN PRN Reason: Saline Flush Last Admin: 12/26/17 13:33 Dose: 10 ml Zolpidem Tartrate (Ambien) 5 mg PO HSPRN PRN PRN Reason: Insomnia
[2017-12-27] MEDS: Cyclobenzaprine 10 MG TAB PO PRN (00:10)
[2017-12-27] MEDS: oxyCODONE/Acetaminophen 5 mg/325 mg Tablet PO PRN ×3 (03:52→12:44)
[2017-12-27 06:11] LABS: Hemoglobin 9.7 g/dL (12.0-16.0); Mean Corpuscular HGB CONC 33.4 g/dL (32.0-36.0); Mean Corpuscular Hemoglobin 32.4 pg (27.0-31.0); Mean Corpuscular Volume 97.1 fL (78.0-98.0); Mean Platelet Volume 7.1 fL (7.4-10.4); Platelet Count 264 thou/uL (130-400); RBC Distribution Width 11.5 % (11.5-14.5); White Blood Cell (WBC) Count 5.5 thou/uL (4.8-10.8)
[2017-12-27] MEDS: Sodium Chloride 0.9% 1,000 ML IV SCH (07:43)
[2017-12-27] MEDS: Ferrous Gluconate 324 MG TAB PO SCH (08:03)
[2017-12-27] MEDS: Senokot S 8.6-50 MG TAB PO SCH (08:04)
[2017-12-27] MEDS: Aspirin 81 mg Enteric Coated Tablet PO SCH (08:04)
[2017-12-27] MEDS: Multivitamin W/ Minerals 1 TAB PO SCH (08:04)
[2017-12-27] MEDS: Morphine ER 30 MG TAB PO SCH (08:05)
[2017-12-27 08:06] VITALS: BP 117/75; TEMP 98.4
--- NOTE | 2017-12-27 15:18 | PDOC.PN ---
- Subjective Encounter Start Date: 12/27/17 Encounter Start Time: 07:00 Pt seen for followup re: migraines. No recurrence. Overall, reports pain is controlled. Ambulating. - Objective MAR Reviewed: Yes Vital Signs & Weight: Vital Signs (12 hours) Temp Pulse Resp BP Pulse Ox 12/27/17 08:05 98.4 F 83 15 117/75 96 12/27/17 08:00 96 12/27/17 03:48 98.2 F 88 16 104/65 93 L Weight Admit Weight 147 lb Weight 147 lb I&O: 12/26/17 12/27/17 12/28/17 06:59 06:59 06:59 Intake Total 2160 700 Output Total 2000 800 Balance 160 -100 Result Diagrams: 12/27/17 05:10 Additional Labs: Labs reviewed by me Phys Exam - Physical Examination Constitutional: NAD HEENT: moist MMs Neck: supple Respiratory: clear to auscultation bilateral Cardiovascular: RRR Gastrointestinal: soft Neurological: moves all 4 limbs Psychiatric: normal affect Dx/Plan (1) Migraine Code(s): G43.909 - MIGRAINE, UNSP, NOT INTRACTABLE, WITHOUT STATUS MIGRAINOSUS Status: Chronic Comment: stable, continue Fioricet as needed (2) RSD (reflex sympathetic dystrophy) Code(s): G90.50 - COMPLEX REGIONAL PAIN SYNDROME I, UNSPECIFIED Status: Chronic Comment: controlled (3) Chronic pain Code(s): G89.29 - OTHER CHRONIC PAIN Status: Chronic Comment: stable - Plan * . Plan to discharge patient noted, will sign off Review of Systems - Review of Systems Cardiovascular: negative: chest pain, palpitations, orthopnea, paroxysmal nocturnal dyspnea, edema, light headedness Gastrointestinal: negative: Nausea, Vomiting, Abdominal Pain, Diarrhea, Constipation, Melena, Hematochezia - Medications/Allergies Allergies/Adverse Reactions: Allergies Allergy/AdvReac Type Severity Reaction Status Date / Time Iodinated Contrast- Oral and Allergy Hives - IV Verified 12/11/17 09:12 IV Dye Contrast [Iodinated Contrast Media - IV Dye] pentazocine lactate Allergy Verified 12/11/17 09:12 [From Talwin] soap [From Betadine] Allergy Verified 12/11/17 09:12 sulfamethoxazole Allergy Hives Verified 12/11/17 09:12 [From Bactrim] tizanidine Allergy Verified 12/11/17 09:12 trimethoprim [From Bactrim] Allergy Hives Verified 12/11/17 09:12 vancomycin Allergy Hives Verified 12/11/17 09:12 standard wound vac drape Allergy severe Uncoded 01/04/16 08:39 itching
== END 2017-12-27 12:57 | disposition home or self-care (01) | DRG 470 ==
LOC: SURG A 12-23 06:25 → SJJU 12-23 14:49
PROVIDERS: ADMIT Orthopaedic Surgery; ATTEND Orthopaedic Surgery
PROC: 0SRB0JA Replacement of Left Hip Joint with Synthetic Substitute, Uncemented, Open Approach (ICD-10-PCS; principal; 2017-12-23)
DX: M16.11 Unilateral primary osteoarthritis, right hip (principal); G90.50 Complex regional pain syndrome I, unspecified; M16.12 Unilateral primary osteoarthritis, left hip; G43.909 Migraine, unspecified, not intractable, without status migrainosus; Z88.8 Allergy status to other drugs, medicaments and biological substances
CPT/HCPCS: 36415; 85027; 86850; 86900; 86901; A4216; C1776; G8978-GP-CJ; G8979-GP-CI; G8987-GO-CL; G8988-GO-CI; J0670; J1170; J1200; J1642; J2250; J2405; J3010; J3490; J7050; S0020

== ENCOUNTER 2017-12-11 08:35 | Outpatient (CLI) | payer OTHER ==
[2017-12-11 10:12] LABS: #Eosinphils 0.1 thou/uL (0.0-0.7); #Lymphocytes 1.1 thou/uL (1.20-3.40); #Monocytes 0.4 thou/uL (0.11-0.59); #Neutrophils 2.8 thou/uL (1.40-6.50); %Basophils 0.1 % (0.0-1.0); %Eosinophils 1.5 % (0.0-10.0); %Lymphocytes 25.6 % (21.0-51.0); %Monocytes 8.6 % (0.0-10.0); %Neutrophils 64.2 % (42.0-75.0); Hemoglobin 12.2 g/dL (12.0-16.0); Mean Corpuscular HGB CONC 33.7 g/dL (32.0-36.0); Mean Corpuscular Hemoglobin 31.8 pg (27.0-31.0); Mean Corpuscular Volume 94.3 fL (78.0-98.0); Mean Platelet Volume 6.8 fL (7.4-10.4); Platelet Count 258 thou/uL (130-400); RBC Distribution Width 10.9 % (11.5-14.5); Red Blood Cell (RBC) Count 3.84 mill/uL (4.20-5.40); White Blood Cell (WBC) Count 4.4 thou/uL (4.8-10.8)
[2017-12-11 10:19] LABS: Prothrombin Time 12.8 SEC (12.0-14.7)
[2017-12-11 10:31] LABS: Anion Gap 14 mmol/L (10-20); BUN (Urea Nitrogen) 14 mg/dL (9.8-20.1); Calc. Creatinine Clearance 0 mL/min (70-130); Calcium 9.3 mg/dL (7.8-10.44); Carbon Dioxide 25 mmol/L (23-31); Chloride 107 mmol/L (98-107); Estimated GFR-MDRD 78; Glucose 113 mg/dL (80-115); Potassium 4.1 mmol/L (3.5-5.1); Sodium 142 mmol/L (136-145)
[2017-12-11 10:34] LABS: Bilirubin Negative (Negative); Blood, Urine Negative (Negative); Clarity CLOUDY (Clear); Glucose, Urine (Dipstick) Negative (Negative); Leukocyte Trace (Negative); Nitrite Negative (Negative); Protein, Urine (Dipstick) 30 mg/dL (Neg-Trace); Specific Gravity, Urine 1.031 (1.002-1.036); Urobilinogen 0.2 mg/dL (0.2-1.0); pH, Urine 5.5 (5.0-9.0)
[2017-12-11 10:42] LABS: Bacteria/HPF None Seen HPF (None Seen); RBC/HPF 0-3 HPF (0-3); Yeast-AUWi Flag 14.1 (0-25.0)
[2017-12-11 10:43] LABS: Pathc Cast-AUWi Flag 8.14 (0-2.49)
[2017-12-11 10:56] LABS: Hyaline Casts/LPF 4-6 HYALINE CAST LPF (0-3 Hyaline)
[2017-12-11 10:58] LABS: Other Casts/LPF 4-6 EPITH CASTS LPF (0-3 Hyaline)
--- NOTE | 2017-12-11 12:10 | RAD ---
CHEST PA AND LATERAL: Date: 12/11/17 HISTORY: 67-year-old female for preoperative evaluation. COMPARISON: 09/15/14. FINDINGS: Right subclavian catheter and injection port. Heart size within normal limits. Lungs are clear. No pn eumonia, edema, pleural effusion, or other acute process. IMPRESSION: No acute intrathoracic disease. POS: [facility]
--- NOTE | 2017-12-14 17:36 | EKG ---
Test Reason : Blood Pressure : / mmHG Vent. Rate : 081 BPM Atrial Rate : 081 BPM P-R Int : 134 ms QRS Dur : 080 ms QT Int : 380 ms P-R-T Axes : 074 035 054 degrees QTc Int : 441 ms Normal sinus rhythm Normal ECG When compared with ECG of 24-JUN-2016 14:11, No significant change was found Confirmed by JAVIER GARCIA (2) on 12/14/2017 5:36:22 PM Referred By: ERIC Confirmed By:JAVIER GARCIA
== END 2017-12-11 08:36 | disposition home or self-care (01) ==
LOC: LABBT 08:35
PROVIDERS: ATTEND Orthopaedic Surgery
DX: Z01.818 Encounter for other preprocedural examination (principal); M16.11 Unilateral primary osteoarthritis, right hip
CPT/HCPCS: 71046; 80048; 81001; 85025; 85610; 87081; 93005; 93010

== ENCOUNTER 2019-06-15 13:48 | Outpatient (CLI) | payer OTHER ==
--- NOTE | 2019-06-16 08:43 | CT ---
CT LEFT HIP WITHOUT CONTRAST: HISTORY: Strain of left hip subsequent encounter. COMPARISON: Hip radiograph 12/27/2018. FINDINGS: BONES: There is moderate enthesopathic change of the left greater trochanter. There is moderate-sized aceta bular osteophyte formation. Visualized portion of the left obturator ring is intact. The left femor al head and neck are intact. There is moderate posterior hip joint space narrowing. Ring osteophyte of the femoral head/neck junc tion. MUSCLES: Muscle bulk is normal. No significant atrophy. SOFT TISSUES: There is marked thickening of the superficial investing fascia of the musculature laterally and poste riorly with calcified granulomas and liquid fat necrosis. These are relatively unchanged from prior imaging studies. The sciatic nerve is unremarkable. A few reactive left superficial inguinal lymph nodes. Mildly enlarged left deep inguinal lymph node. There appears to be an area of scar and fat necrosis along the lateral thigh at the level of the grea ter trochanter. This is also true along the posterior thigh on image 1 just adjacent to the gluteus medias muscle. IMPRESSION: 1. Moderate degenerative change of the left hip greatest in the posterior margin with high-grade cho ndral loss and osteophyte formation of both the acetabulum and the femoral head/neck junction. 2. No acute fracture or malalignment. 3. Areas of skin thickening with scar and skin dimpling within fat necrosis throughout the lateral t high and posterior thigh. 4. Numerous calcified granulomas/calcified fat necrosis involving the superficial investing fascia o f the musculature. No significant muscle atrophy. 5. Normal appearance of the left sciatic nerve. 6. Reactive left superficial inguinal lymph nodes. 7. High-grade enthesopathic change of the greater trochanter can be seen with chronic gluteus medias tendinosis and partial tearing. This can be a source of lateral hip pain. POS: HOME
== END 2019-06-15 13:49 | disposition home or self-care (01) ==
LOC: BICCT 13:48
PROVIDERS: ATTEND Family Medicine
DX: S76.012D Strain of muscle, fascia and tendon of left hip, subsequent encounter (principal); M16.12 Unilateral primary osteoarthritis, left hip; M79.89 Other specified soft tissue disorders; M62.89 Other specified disorders of muscle; M76.892 Other specified enthesopathies of left lower limb, excluding foot

== ENCOUNTER 2024-02-03 10:31 | Day surgery (SDC) | payer OTHER, MEDICARE ==
[2024-02-03] MEDS ORDERED: Lidocaine/Transparent Dressing 1 EACH KIT ONE (11:21)
[2024-02-03] MEDS ORDERED: Morphine 4 MG/ML VIAL ONE (12:02)
[2024-02-03 12:11] LABS: ALT (SGPT) 9 U/L (8-55); AST (SGOT) 14 U/L (5-34); Albumin 3.8 g/dL (3.4-4.8); Alkaline Phosphatase 104 U/L (40-110); Anion Gap 12 mmol/L (10-20); BUN (Urea Nitrogen) 16 mg/dL (9.8-20.1); Bilirubin, Total 0.4 mg/dL (0.2-1.2); Calc. Creatinine Clearance 0 mL/min (70-130); Calcium 9.1 mg/dL (7.8-10.44); Carbon Dioxide 28 mmol/L (23-31); Chloride 104 mmol/L (98-107); Estimated GFR 84; Globulin 3.7 g/dL (2.4-3.5); Glucose 102 mg/dL (83-110); Magnesium 1.9 mg/dL (1.6-2.6); Potassium 3.9 mmol/L (3.5-5.1); Protein, Total 7.5 g/dL (5.8-8.1); Sodium 140 mmol/L (136-145)
[2024-02-03 12:17] LABS: #Basophils 0.03 10x3/uL (0.0-0.2); %Basophils 0.5 % (0.0-1.0); %Eosinophils 1.5 % (0.0-10.0); %Lymphocytes 24.8 % (21.0-51.0); %Neutrophils 63.9 % (42.0-75.0); Hematocrit 33.9 % (36.0-47.0); Hemoglobin 11.4 g/dL (12.0-16.0); Mean Corpuscular HGB CONC 33.6 g/dL (32.0-36.0); Mean Corpuscular Hemoglobin 32.1 pg (27.0-31.0); Mean Corpuscular Volume 95.5 fL (78.0-98.0); Mean Platelet Volume 9.9 fL (7.4-10.4); Platelet Count 284 10x3/uL (130-400); Red Blood Cell (RBC) Count 3.55 mill/uL (4.20-5.40)
[2024-02-03] MEDS ORDERED: Piperacillin/Tazobactam 3.375 GM VIAL ONE (12:40)
[2024-02-03 13:11] LABS: PTT 23.6 sec (22.9-36.1); Prothrombin Time 13.3 sec (12.0-14.7)
[2024-02-03] MEDS ORDERED: Bupivacaine 0.25% HCL 30 ML VIAL ONE (15:02)
[2024-02-03] MEDS ORDERED: EPINEPHrine 1 MG/ML VIAL ONE (15:02)
[2024-02-03] MEDS ORDERED: Lidocaine 2% PF 5 ML VIAL ONE ×2 (15:02→15:16)
[2024-02-03] MEDS ORDERED: PROPOFOL 20 ML ONE ×2 (15:03→15:16)
[2024-02-03] MEDS ORDERED: Midazolam HCl 2 mg/2 ml Vial ONE (15:16)
[2024-02-03] MEDS ORDERED: Ketamine In 0.9 % NaCl 50 MG/5 ML SYRINGE ONE (15:16)
[2024-02-03] MEDS ORDERED: CEFAZOLIN 1 GM VIAL ONE (15:34)
[2024-02-03] MEDS ORDERED: fentaNYL 50 mcg/mL 1 mL Vial ONE ×2 (15:59→16:21)
[2024-02-03] MEDS ORDERED: HYDROcodone/Acetaminophen 5/325 mg Tablet ONE (16:43)
== END 2024-02-03 17:05 | disposition home or self-care (01) ==
LOC: ERS 10:31 → SDC 15:00
PROVIDERS: ATTEND Surgery
PROC: 0JPV3XZ Removal of Tunneled Vascular Access Device from Upper Extremity Subcutaneous Tissue and Fascia, Percutaneous Approach (ICD-10-PCS; principal; 2024-02-03)
DX: T80.219A Unspecified infection due to central venous catheter, initial encounter (principal); Z98.890 Other specified postprocedural states; E78.5 Hyperlipidemia, unspecified; Z79.899 Other long term (current) drug therapy; Z91.041 Radiographic dye allergy status; Z88.8 Allergy status to other drugs, medicaments and biological substances; Z88.1 Allergy status to other antibiotic agents; Z88.4 Allergy status to anesthetic agent; Z88.2 Allergy status to sulfonamides; Y83.1 Surgical operation with implant of artificial internal device as the cause of abnormal reaction of the patient, or of later complication, without mention of misadventure at the time of the procedure
CPT/HCPCS: 36415; 80053; 83605; 83655; 83735; 85025; 85610; 85730; 87040; 96365; 96375; J0171; J0665; J0690; J2250; J2272; J2543; J2704; J3010; J3490